=== PATIENT | male | born 1985 | race Caucasian/White ===

== ENCOUNTER 2016-07-26 05:49 | Emergency (ER) | payer OTHER ==
[~2016-07-26] VITALS: Ht 170.2 cm; Wt 55.3 kg
[~2016-07-26 05:49] MED LIST: ALPRAZOLAM0.5 MG PO; CARBATROL-ER200 MG PO; DIVALPROEX SOD250 MG PO; MELOXICAM15 MG PO; NOHOMEMEDS; OXAYDO5 MG PO; TIZANIDINE HCL4 M1 PO
[2016-07-26] MEDS ORDERED: CYCLOBENZAPRINE10 MG PO (06:54)
[2016-07-26] MEDS ORDERED: BACLOFEN10 MG PO (06:54)
[2016-07-26 07:39] VITALS: BP 104/76
== END 2016-07-26 07:40 | disposition home or self-care (01) ==
LOC: EME 05:49
DX: S16.1XXA Strain of muscle, fascia and tendon at neck level, initial encounter (principal); W10.9XXA Fall (on) (from) unspecified stairs and steps, initial encounter; Z98.1 Arthrodesis status; G89.29 Other chronic pain; Z79.891 Long term (current) use of opiate analgesic; F17.200 Nicotine dependence, unspecified, uncomplicated
CPT/HCPCS: 72125; 99281; 99285

== ENCOUNTER 2016-08-25 10:55 | Emergency (ER) | payer OTHER ==
[~2016-08-25] VITALS: Ht 170.2 cm; Wt 55.9 kg
[~2016-08-25 10:55] MED LIST changes: +BACLOFEN10 MG PO; +CYCLOBENZAPRINE10 MG PO
[2016-08-25] MEDS ORDERED: CYMBALTA30 MG PO (11:39)
[2016-08-25] MEDS ORDERED: LORTAB 5-325 M1 EACH PO (13:25)
[2016-08-25 13:39] VITALS: BP 106/65
== END 2016-08-25 13:40 | disposition home or self-care (01) ==
LOC: EME 10:55
DX: M54.81 Occipital neuralgia (principal); G89.29 Other chronic pain; Z71.6 Tobacco abuse counseling; F17.200 Nicotine dependence, unspecified, uncomplicated; Z98.1 Arthrodesis status; Z88.8 Allergy status to other drugs, medicaments and biological substances
CPT/HCPCS: 99281; 99284; J1100

== ENCOUNTER 2016-10-14 09:01 | Emergency (ER) | payer OTHER ==
[~2016-10-14] VITALS: Ht 170.2 cm; Wt 55.6 kg
[~2016-10-14 09:01] MED LIST changes: +CYMBALTA30 MG PO; +LORTAB 5-325 M1 EACH PO
[2016-10-14 09:55] VITALS: BP 136/91
== END 2016-10-14 09:56 | disposition home or self-care (01) ==
LOC: EME 09:01
DX: M54.81 Occipital neuralgia (principal); T75.4XXS Electrocution, sequela; G43.909 Migraine, unspecified, not intractable, without status migrainosus; Z88.1 Allergy status to other antibiotic agents; F17.200 Nicotine dependence, unspecified, uncomplicated; Z98.1 Arthrodesis status
CPT/HCPCS: 99281; 99284

== ENCOUNTER 2017-03-15 03:02 | Emergency (ER) | payer OTHER ==
[~2017-03-15] VITALS: Ht 170.2 cm; Wt 53.9 kg
[2017-03-15 04:04] LABS: HEMATOCRIT 41.9 % (38.0-50.0); MCH 31.1 PG (29.0-34.0); MCHC 35.1 G/DL (30.0-36.0); MCV 88.6 FL (86-99); MEAN PLAT.VOLUME 10.2 uM^3 (9.0-12.4); PLATELET COUNT 307 K/uL (156-360); RBC DIS.WIDTH-CV 12.8 % (11.8-14.6); RED BLOOD COUNT 4.73 M/uL (4.00-5.50); WHITE BLOOD COUNT 9.2 K/uL (4.1-10.2)
[2017-03-15 04:31] LABS: TROP-I INTERPRETATION NEGATIVE; TROPONIN-I < 0.01 ng/mL (0.0-0.30)
[2017-03-15 04:41] LABS: CHLORIDE 105 mEq/L (99-109); POTASSIUM 3.6 mEq/L (3.7-5.4); SODIUM 137 mEq/L (136-147)
[2017-03-15 04:43] LABS: GLUCOSE 134 mg/dL (70-99)
[2017-03-15 04:44] LABS: ANION GAP 11 MEQ/L (2-14)
[2017-03-15 04:47] LABS: GFR ESTIMATE (CALCULATED) > 59 mL/min/
[2017-03-15 04:48] LABS: UREA NITROGEN (BUN) 10 mg/dL (9-23)
[2017-03-15 05:25] VITALS: BP 106/76
== END 2017-03-15 05:25 | disposition home or self-care (01) ==
LOC: EME 03:02
PROVIDERS: Emergency Medicine
DX: R00.2 Palpitations (principal); Z87.820 Personal history of traumatic brain injury; F17.200 Nicotine dependence, unspecified, uncomplicated
CPT/HCPCS: 80048; 84484; 85027; 93005; 99281; 99284

== ENCOUNTER 2017-03-20 05:44 | Emergency (ER) | payer OTHER ==
[~2017-03-20] VITALS: Ht 170.2 cm; Wt 54.6 kg
[2017-03-20 09:04] VITALS: BP 102/71
== END 2017-03-20 09:05 | disposition home or self-care (01) ==
LOC: EME 05:44
DX: M54.2 Cervicalgia (principal); G89.29 Other chronic pain; R51 Headache; R11.0 Nausea; Z79.891 Long term (current) use of opiate analgesic; Z87.820 Personal history of traumatic brain injury; F17.200 Nicotine dependence, unspecified, uncomplicated
CPT/HCPCS: 99281; 99284; J2060

== ENCOUNTER 2017-05-31 07:47 | Emergency (ER) | payer OTHER ==
[~2017-05-31] VITALS: Ht 170.2 cm; Wt 52.3 kg
[2017-05-31 09:12] LABS: HEMATOCRIT 41.3 % (38.0-50.0); MCH 31.7 PG (29.0-34.0); MCHC 35.1 G/DL (30.0-36.0); MCV 90.2 FL (86-99); MEAN PLAT.VOLUME 10.5 uM^3 (9.0-12.4); PLATELET COUNT 281 K/uL (156-360); RED BLOOD COUNT 4.58 M/uL (4.00-5.50); WHITE BLOOD COUNT 9.8 K/uL (4.1-10.2)
[2017-05-31 09:23] LABS: CHLORIDE 110 mEq/L (99-109); POTASSIUM 3.8 mEq/L (3.7-5.4); SODIUM 141 mEq/L (136-147)
[2017-05-31 09:25] LABS: GLUCOSE 94 mg/dL (70-99)
[2017-05-31 09:26] LABS: ANION GAP 7 MEQ/L (2-14)
[2017-05-31 09:27] LABS: TOTAL BILIRUBIN 0.4 mg/dL (0.0-1.0)
[2017-05-31 09:29] LABS: ALKALINE PHOSPHATASE 78 IU/L (3-129); GFR ESTIMATE (CALCULATED) > 59 mL/min/
[2017-05-31 09:30] LABS: UREA NITROGEN (BUN) 14 mg/dL (9-23)
[2017-05-31 09:33] LABS: TROP-I INTERPRETATION NEGATIVE; TROPONIN-I < 0.01 ng/mL (0.0-0.30)
[2017-05-31] MEDS ORDERED: ATARAX,VISTARIL50 MG PO (10:41)
[2017-05-31 11:02] VITALS: BP 117/78
== END 2017-05-31 11:15 | disposition home or self-care (01) ==
LOC: EME 07:47
PROVIDERS: Nurse Practitioner Family
DX: S29.011A Strain of muscle and tendon of front wall of thorax, initial encounter (principal); R07.89 Other chest pain; F41.9 Anxiety disorder, unspecified; X58.XXXA Exposure to other specified factors, initial encounter; Y93.C2 Activity, hand held interactive electronic device; F03.90 Unspecified dementia, unspecified severity, without behavioral disturbance, psychotic disturbance, mood disturbance, and anxiety; Z87.820 Personal history of traumatic brain injury; Z98.1 Arthrodesis status; F17.200 Nicotine dependence, unspecified, uncomplicated; Z88.1 Allergy status to other antibiotic agents
CPT/HCPCS: 71020; 80053; 84484; 85027; 93005; 99281; 99284; Q0177

== ENCOUNTER 2017-07-23 04:46 | Emergency (ER) | payer OTHER ==
[~2017-07-23] VITALS: Ht 170.2 cm; Wt 53.1 kg
[~2017-07-23 04:46] MED LIST changes: +ATARAX,VISTARIL50 MG PO
[2017-07-23 07:57] VITALS: BP 100/69
== END 2017-07-23 07:57 | disposition home or self-care (01) ==
LOC: EME 04:46
DX: Z71.1 Person with feared health complaint in whom no diagnosis is made (principal); Z98.1 Arthrodesis status
CPT/HCPCS: 72040; 99281; 99284

== ENCOUNTER 2017-08-07 21:59 | Emergency (ER) | payer OTHER ==
[~2017-08-07] VITALS: Ht 170.2 cm; Wt 52.8 kg
[2017-08-08] MEDS ORDERED: ATARAX,VISTARIL25 MG PO (02:32)
[2017-08-08 02:49] VITALS: BP 132/87
== END 2017-08-08 02:49 | disposition home or self-care (01) ==
LOC: EXP 21:59 → EME 21:59 → EXP 08-08 02:49
DX: M54.2 Cervicalgia (principal); G89.29 Other chronic pain; Z87.820 Personal history of traumatic brain injury; F03.90 Unspecified dementia, unspecified severity, without behavioral disturbance, psychotic disturbance, mood disturbance, and anxiety; Z98.1 Arthrodesis status; F17.200 Nicotine dependence, unspecified, uncomplicated
CPT/HCPCS: 99281; 99284; J2270; Q0177

== ENCOUNTER 2017-08-16 00:36 | Emergency (ER) | payer OTHER ==
[~2017-08-16] VITALS: Ht 170.2 cm; Wt 51.3 kg
[~2017-08-16 00:36] MED LIST changes: +ATARAX,VISTARIL25 MG PO
[2017-08-16] MEDS ORDERED: COLACE100 MG PO (01:56)
[2017-08-16 02:30] VITALS: BP 121/96
== END 2017-08-16 02:38 | disposition home or self-care (01) ==
LOC: EME 00:36
DX: K59.00 Constipation, unspecified (principal); F03.90 Unspecified dementia, unspecified severity, without behavioral disturbance, psychotic disturbance, mood disturbance, and anxiety; F17.200 Nicotine dependence, unspecified, uncomplicated
CPT/HCPCS: 71046; 74018

== ENCOUNTER 2017-08-19 06:58 | Emergency (ER) | payer OTHER ==
[~2017-08-19] VITALS: Ht 170.2 cm; Wt 50.0 kg
[~2017-08-19 06:58] MED LIST changes: +COLACE100 MG PO
[2017-08-19 07:03] VITALS: BP 125/93
[2017-08-19 07:58] LABS: BASOPHIL (%) 0.9 % (0-1); BASOPHIL COUNT 0.1 K/uL (0-0.1); EOSINOPHIL (%) 4.1 % (0-5); EOSINOPHIL COUNT 0.3 K/uL (0-0.3); HEMATOCRIT 40.8 % (38.0-50.0); HEMOGLOBIN 14.1 G/DL (12.5-16.6); IMMATURE GRANULOCYTE (%) 0.1 % (0.0-0.7); LYMPHOCYTE (%) 24.7 % (15-42); LYMPHOCYTE COUNT 1.7 K/uL (1.0-2.8); MCH 31.4 PG (29.0-34.0); MCHC 34.6 G/DL (30.0-36.0); MCV 90.9 FL (86-99); MONOCYTE (%) 8.8 % (3-12); MONOCYTE COUNT 0.6 K/uL (0-0.8); NEUTROPHIL (%) 61.4 % (45-76); NEUTROPHIL COUNT 4.2 K/uL (1.8-6.4); PLATELET COUNT 254 K/uL (156-360); RBC DIS.WIDTH-CV 12.6 % (11.8-14.6); RBC DIS.WIDTH-SD 41.2 % (39-53); RED BLOOD COUNT 4.49 M/uL (4.00-5.50); WHITE BLOOD COUNT 6.8 K/uL (4.1-10.2)
[2017-08-19 08:13] LABS: ALBUMIN 4.1 g/dL (3.2-4.8); CHLORIDE 106 mEq/L (99-109); POTASSIUM 3.8 mEq/L (3.7-5.4); SODIUM 135 mEq/L (136-147)
[2017-08-19 08:15] LABS: GLUCOSE 88 mg/dL (70-99); TOTAL PROTEIN 6.3 g/dL (6.4-8.3)
[2017-08-19 08:17] LABS: TOTAL BILIRUBIN 0.4 mg/dL (0.0-1.0)
[2017-08-19 08:19] LABS: ALKALINE PHOSPHATASE 78 IU/L (3-129); CREATININE 0.9 mg/dL (0.6-1.3); GFR ESTIMATE (CALCULATED) > 59 mL/min/ (58.99-99999)
[2017-08-19 08:20] LABS: UREA NITROGEN (BUN) 8 mg/dL (9-23)
[2017-08-19 08:21] LABS: AST (GOT) 14 IU/L (2-34)
[2017-08-19 08:22] LABS: ALT (GPT) 12 IU/L (3-49)
== END 2017-08-19 08:57 | disposition home or self-care (01) ==
LOC: EME 06:58
PROVIDERS: Physician Assistant
DX: K59.00 Constipation, unspecified (principal); G89.29 Other chronic pain; F17.200 Nicotine dependence, unspecified, uncomplicated; Z79.891 Long term (current) use of opiate analgesic; Z98.1 Arthrodesis status; Z88.1 Allergy status to other antibiotic agents
CPT/HCPCS: 74022; 80053; 85025; 99281; 99284; J2405

== ENCOUNTER 2017-08-24 11:15 | Emergency (ER) | payer OTHER ==
[~2017-08-24] VITALS: Ht 170.2 cm; Wt 50.1 kg
[2017-08-24 12:10] LABS: HEMOGLOBIN 14.7 G/DL (12.5-16.6); MCH 31.5 PG (29.0-34.0); MCV 89.9 FL (86-99); RBC DIS.WIDTH-CV 12.7 % (11.8-14.6); RBC DIS.WIDTH-SD 41.8 % (39-53); RED BLOOD COUNT 4.67 M/uL (4.00-5.50); WHITE BLOOD COUNT 6.6 K/uL (4.1-10.2)
[2017-08-24 12:23] LABS: ALBUMIN 4.5 g/dL (3.2-4.8); CHLORIDE 107 mEq/L (99-109); SODIUM 137 mEq/L (136-147)
[2017-08-24 12:25] LABS: GLUCOSE 115 mg/dL (70-99); TOTAL PROTEIN 7.2 g/dL (6.4-8.3)
[2017-08-24 12:28] LABS: TOTAL BILIRUBIN 0.3 mg/dL (0.0-1.0)
[2017-08-24 12:29] LABS: ALKALINE PHOSPHATASE 80 IU/L (3-129); CREATININE 0.9 mg/dL (0.6-1.3); GFR ESTIMATE (CALCULATED) > 59 mL/min/ (58.99-99999)
[2017-08-24 12:30] LABS: UREA NITROGEN (BUN) 10 mg/dL (9-23)
[2017-08-24 12:31] LABS: AST (GOT) 17 IU/L (2-34); DIRECT BILIRUBIN 0.1 mg/dL (0.0-0.3)
[2017-08-24 12:32] LABS: ALT (GPT) 17 IU/L (3-49); LIPASE 73 U/L (1.0-51.0)
[2017-08-24 12:52] LABS: PLAT.SUFFICIENCY ADEQUATE; PLATELET COUNT 299 K/uL (156-360)
[2017-08-24] MEDS ORDERED: BENTYL10 MG PO (13:00)
[2017-08-24 13:43] VITALS: BP 98/74
== END 2017-08-24 13:44 | disposition home or self-care (01) ==
LOC: EME 11:15
PROVIDERS: Physician Assistant
DX: K59.00 Constipation, unspecified (principal); G89.29 Other chronic pain; F17.200 Nicotine dependence, unspecified, uncomplicated; F03.90 Unspecified dementia, unspecified severity, without behavioral disturbance, psychotic disturbance, mood disturbance, and anxiety; Z79.891 Long term (current) use of opiate analgesic; Z88.1 Allergy status to other antibiotic agents
CPT/HCPCS: 74176; 80048; 80076; 81003; 83690; 85027; 99281; 99284

== ENCOUNTER 2017-09-10 08:29 | Emergency (ER) | payer OTHER ==
[~2017-09-10] VITALS: Ht 170.2 cm; Wt 49.9 kg
[~2017-09-10 08:29] MED LIST changes: +BENTYL10 MG PO
[2017-09-10 10:03] LABS: TROP-I INTERPRETATION NEGATIVE; TROPONIN-I < 0.01 ng/mL (0.0-0.30)
[2017-09-10 10:37] VITALS: BP 121/83
== END 2017-09-10 10:37 | disposition home or self-care (01) ==
LOC: EME 08:29
PROVIDERS: Emergency Medicine
DX: R07.89 Other chest pain (principal); F17.200 Nicotine dependence, unspecified, uncomplicated
CPT/HCPCS: 71046; 84484; 93005; 99281; 99283

== ENCOUNTER 2017-10-13 23:55 | Emergency (ER) | payer OTHER ==
[~2017-10-13] VITALS: Ht 170.2 cm; Wt 54.1 kg
[2017-10-14 02:51] VITALS: BP 123/79
== END 2017-10-14 02:53 | disposition home or self-care (01) ==
LOC: EME 23:55
DX: S16.1XXA Strain of muscle, fascia and tendon at neck level, initial encounter (principal); R20.0 Anesthesia of skin; W18.2XXA Fall in (into) shower or empty bathtub, initial encounter; Y93.E1 Activity, personal bathing and showering; Z98.1 Arthrodesis status; Z87.820 Personal history of traumatic brain injury; F17.200 Nicotine dependence, unspecified, uncomplicated
CPT/HCPCS: 70450; 72125; 99281; 99284

== ENCOUNTER 2018-02-09 05:24 | Emergency (ER) | payer OTHER ==
[~2018-02-09] VITALS: Ht 170.2 cm; Wt 53.9 kg
[2018-02-09 06:55] LABS: CARBON DIOXIDE (BICARBONATE) 27.9 MEQ/L (20-31); HEMATOCRIT 40.2 % (38.0-50.0); HEMOGLOBIN 14.1 G/DL (12.5-16.6); MCHC 35.1 G/DL (30.0-36.0); MCV 91.2 FL (86-99); PLATELET COUNT 323 K/uL (156-360); RBC DIS.WIDTH-CV 12.6 % (11.8-14.6); RBC DIS.WIDTH-SD 42.1 % (39-53); RED BLOOD COUNT 4.41 M/uL (4.00-5.50); WHITE BLOOD COUNT 10.2 K/uL (4.1-10.2)
[2018-02-09 08:54] LABS: ACETAMINOPHEN (TYLENOL) < 10 MCG/ML (10-30); ALBUMIN 4.5 G/DL (3.2-4.8); ALKALINE PHOSPHATASE 66 IU/L (3-129); ALT (GPT) 11 IU/L (3-49); AST (GOT) 14 IU/L (2-34); CHLORIDE 104 MEQ/L (99-109); CREATININE 0.9 MG/DL (0.6-1.3); GFR ESTIMATE (CALCULATED) > 59 mL/min/ (58.99-99999); GLUCOSE 93 mg/dL (70-99); POTASSIUM 3.8 MEQ/L (3.7-5.4); SALICYLATE < 3.0 MG/DL (15-30); SODIUM 139 MEQ/L (136-147); TOTAL BILIRUBIN 0.4 MG/DL (0.0-1.0); TOTAL PROTEIN 6.8 G/DL (6.4-8.3); UREA NITROGEN (BUN) 13 mg/dL (9-23)
[2018-02-09 09:27] LABS: APPEARANCE CLEAR ((CLEAR)); BILIRUBIN NEGATIVE; BLOOD NEGATIVE; COLOR STRAW ((YELLOW)); GLUCOSE (STRIP) NEGATIVE; KETONES NEGATIVE; LEUKOCYTES NEGATIVE; NITRITE NEGATIVE; PROTEIN (STRIP) NEGATIVE; SPECIFIC GRAVITY 1.008 (1.000-1.030); UCUL ADDED? NO; UROBILINOGEN 0.2 MG/DL (0.2-1.0)
[2018-02-09 09:32] LABS: AMPHETAMINE NEGATIVE (500 ng/mL); BARBITURATES NEGATIVE (200 ng/mL); BENZODIAZEPINES NEGATIVE (150 ng/mL); BUPRENORPHINE NEGATIVE (10 ng/mL); COCAINE NEGATIVE (150 ng/mL); METHADONE NEGATIVE (200 ng/mL); METHAMPHETAMINE NEGATIVE (500 ng/mL); OPIATES (MORPHINE) NEGATIVE (100 ng/mL); OXYCODONE PRESUMPTIVE POSITIVE (100 ng/mL); PHENCYCLIDINE NEGATIVE (25 ng/mL); PROPOXYPHENE NEGATIVE (300 ng/mL); THC CANNABINOIDS NEGATIVE (50 ng/mL); TRICYCLIC ANTIDEPRESSANTS NEGATIVE (300 ng/mL)
[2018-02-09 10:29] VITALS: BP 103/72
[2018-02-09 10:35] LABS: SERUM ETHYL ALCOHOL < 10 mg/dL
== END 2018-02-09 10:30 | disposition home or self-care (01) ==
LOC: EME 05:24
PROVIDERS: Emergency Medicine
DX: R53.81 Other malaise (principal); R53.83 Other fatigue; Z77.098 Contact with and (suspected) exposure to other hazardous, chiefly nonmedicinal, chemicals; F03.90 Unspecified dementia, unspecified severity, without behavioral disturbance, psychotic disturbance, mood disturbance, and anxiety; F17.200 Nicotine dependence, unspecified, uncomplicated; Z98.1 Arthrodesis status; Z88.1 Allergy status to other antibiotic agents
CPT/HCPCS: 80053; 81003; 82693 90; 82803; 83605; 83930; 85027; 89060; 93005; G0480; J2405; J7030